=== PATIENT | male | born 1985 | race Caucasian/White ===

== ENCOUNTER 2022-04-15 15:26 | Emergency (ER) | payer SELFPAY ==
[2022-04-15] MEDS: Ondansetron 4 MG/2 ML SDV IVPUSH ONE ×2 (15:53→16:48)
[2022-04-15] MEDS: Ketorolac 30 MG/ML SDV IVPUSH ONE (15:56)
[2022-04-15] MEDS: Sodium Chloride 0.9% 1,000 ML IV ONE (16:08)
[2022-04-15] MEDS: Tamsulosin 0.4 MG Cap.ER PO ONE (16:44)
[2022-04-15] MEDS: HYDROmorphone 1 MG/ML Syringe IVPUSH ONE (16:45)
[2022-04-15] MEDS: Sodium Chloride 0.9% 1,000 ML IV SCH (17:10)
[2022-04-15] MEDS: Take Home: Ondansetron 4 MG Tab.DIS, 2 Tab Pack PO ONE (17:48)
[2022-04-15] MEDS: Take Home: Acetaminophen/HYDROcodone 325-5 MG, 2 Tab Pack PO ONE (17:49)
== END 2022-04-15 18:10 | disposition home or self-care (01) ==
LOC: CC.ED 15:26
DX: N13.2 Hydronephrosis with renal and ureteral calculous obstruction (principal)
CPT/HCPCS: 36415; 74018; 74176; 80053; 81001; 82150; 83690; 85025; 96361; 96374; 96375; 96376; 99284; A9270; J1170; J1885; J2405; J7030